=== PATIENT | male | born 1985 | race Two or more races ===

== ENCOUNTER 2023-06-22 10:45 | Emergency (ER) | payer MEDICAID, OTHER ==
[~2023-06-22] VITALS: Ht 180.3 cm; Wt 110.8 kg
[2023-06-22 12:10] VITALS: BP 128/77; PULSE 96; RESP 12; TEMP 98.4; O2SAT 96
[2023-06-22] MEDS: KETOROLAC TROMETH 60MG/2ML VIAL IM ONE (12:29)
[2023-06-22] MEDS ORDERED: IBUP-1456 PO (12:42)
[2023-06-22] MEDS ORDERED: BACL10TA PO (12:42)
== END 2023-06-22 12:48 | disposition home or self-care (01) ==
LOC: ER 10:45
DX: S16.1XXA Strain of muscle, fascia and tendon at neck level, initial encounter (principal); S39.012A Strain of muscle, fascia and tendon of lower back, initial encounter; M51.37 Other intervertebral disc degeneration, lumbosacral region; V43.52XA Car driver injured in collision with other type car in traffic accident, initial encounter; Y93.89 Activity, other specified; Y92.89 Other specified places as the place of occurrence of the external cause; Y99.8 Other external cause status
CPT/HCPCS: 72040; 72100; 99284; J1885